=== PATIENT | female | born 2000 | race Caucasian/White ===

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

== ENCOUNTER → 2020-06-23 | Outpatient (CLI) | payer OTHER, SELFPAY ==
[2020-06-23 14:22] VITALS: BMI 25.7
[2020-06-23 19:32] LABS: Chlamydia Trachomatis by PCR Negative (Negative); Neisserai gonorrhoeae by PCR Negative (Negative); Probe Check PASS; Sample Adequacy Control PASS; Specimen Processing Control PASS
== END | disposition home or self-care (01) ==
LOC: LABSPEC 16:28
PROVIDERS: PCP Pediatrics; Visit Provider Nurse Practitioner Women's Health
DX: Z11.3 Encounter for screening for infections with a predominantly sexual mode of transmission (principal)
CPT/HCPCS: 87491; 87591

== ENCOUNTER 2020-08-13 18:26 | Emergency (ER) | payer OTHER, SELFPAY ==
[2020-06-23 14:22] VITALS: BMI 25.7
[2020-08-13 18:27] VITALS: BP 122/70; PULSE 63; RESP 20; TEMP 36.5; O2SAT 96; BMI 24.9
[2020-08-13 20:33] VITALS: BP 114/70; PULSE 52; RESP 16; O2SAT 100
[2020-08-13 20:34] VITALS: O2SAT 97
--- NOTE | 2020-08-13 21:10 | EDS_ITS ---
HPI History of Present Illness Chief Complaint: Chest Pain Informant: patient Narrative Narrative: Patient is a 20-year-old previously healthy female who presents to the emergency department for chest pain. This started earlier today. She started develop a cough today. She was diagnosed with Covid this past Sunday. She denies any production to her cough. Taking a deep breath does seem to aggravate her symptoms. She has not tried taking anything for it. She is currently denying any significant pain or shortness of breath. She does occasionally feel short of breath when the pain comes on. She denies any leg swelling or calf pain. She has had some intermittent fevers and chills. She denies any abdominal pain or nausea/vomiting. She has had some loose stools. She is on control. She denies any smoking history. [facility] Medical History (Updated 08/13/20 @ 23:[address] Clemente Howard DO) Biliary dyskinesia Physical exam, pre-employment Home Medications norgestimate 0.25 mg-ethinyl estradiol 35 mcg tablet 1 tab PO QDAY #84 tab 06/23/20 [Rx Last Taken Unknown] Allergy/AdvReac Type Severity Reaction Status Date / Time No Known Allergies Allergy Verified 06/23/20 14:18 Family History Grandfather Heart disease Grandmother Heart disease Surgical History (Updated 08/13/20 @ 20:33 by Kade Alvarado) History of cholecystectomy Status post laparoscopic cholecystectomy (~07/07/19) Social History current occupational status: student current occupation: [employer] Smoking Status: Never smoker alcohol intake: never substance use type: does not use caffeine: Yes frequency: 5-6 times per week seatbelt use: always do you feel safe at home: Yes ROS ROS ED Constitutional Constitutional ED: Denies chills or fever(s) Eyes Eyes: Denies change in vision ENT ENT ED: Denies epistaxis or rhinorrhea Cardiovascular Cardiovascular: Reports chest pain; Denies palpitations Respiratory/Chest Respiratory/Chest: Reports cough and dyspnea; Denies sputum Gastrointestinal Gastrointestinal: Denies abdominal pain, nausea or vomiting Musculoskeletal Musculoskeletal: Denies back pain or neck pain Integumentary Denies rash Neurologic Neurologic: Denies dizziness, headache(s) or weakness EXAM Physical Exam Const Vital Signs: 08/13/20 18:27 08/13/20 20:33 08/13/20 20:34 Temperature 97.7 F L Temperature Source Temporal Pulse Rate 63 52 L Respiratory Rate 20 H 16 Respiratory Depth Normal Respiratory Pattern Normal Blood Pressure 122/70 H 114/70 Blood Pressure Mean 87 84 Pulse Ox 96 100 Oxygen Delivery Method Room Air Room Air Room Air 08/13/20 22:00 Temperature Temperature Source Pulse Rate 53 L Respiratory Rate 17 Respiratory Depth Respiratory Pattern Blood Pressure 112/75 Blood Pressure Mean 87 Pulse Ox 99 Oxygen Delivery Method Room Air Positive well nourished and well developed General Appearance ED: well developed and NAD HEENT Reports normocephalic, head/scalp atraumatic and moist mucous membranes Eyes PERRL and EOMs intact bilaterally Neck supple Resp normal respiratory effort and clear to auscultation bilaterally Auscultation: Negative for rales, rhonchi or wheezes Cardio regular rate, regular rhythm and no murmurs GI normal to inspection, nondistended, normoactive bowel sounds and non-tender Palpation: soft; Negative for guarding or rebound tenderness present Extremity normal to inspection General Extremety ED: Negative for edema or tenderness General Extremity: Negative for edema Neuro CN's II-XII intact bilaterally and no sensory deficits noted Sensorium / Orientation: alert Motor Exam: strength 5/5 throughout Psych mental status grossly normal Skin no rashes or lesions noted MDM MDM MDM Narrative Medical decision making narrative: Patient presents to the ED for chest pain with a Covid diagnosis. On arrival to the ED she is satting 96% on room air. She is not tachypneic. She is not tachycardic. She is a benign physical exam. I discussed with the patient and her mother about the increased risk for PE with Covid although she is not meeting other criteria for the diagnosis. They did want to be evaluated so we will do a D-dimer test on her. They understand the might require a CT scan of the chest if this comes back positive. Patient's lab work showed mild leukopenia consistent with Covid. Her D-dimer is well within normal limits. Troponin is not elevated. The rest lab work did not reveal a significant acute abnormality. Chest x-ray was also clear. At this time will discharge home in stable condition. Recommend symptomatic treatment at home. Return precautions are reviewed. They are to otherwise follow-up with her PCP. All questions were answered. Lab Data Labs: Laboratory Results - last 24 hr 08/13/20 08/13/20 08/13/20 21:38 21:38 21:38 WBC 4.1 L RBC 4.51 Hgb 13.7 Hct 40.1 MCV 88.9 MCH 30.4 MCHC 34.2 RDW Std Deviation 37.6 RDW Coeff of Ricky 11.6 Plt Count 152 MPV 9.5 Immature Gran % (Auto) 0.000 Neut % (Auto) 36.8 L Lymph % (Auto) 54.6 H [place] % (Auto) 8.1 Eos % (Auto) 0.5 Baso % (Auto) 0.0 Absolute Neuts (auto) 1.5 L Absolute Lymphs (auto) 2.21 Nucleated RBC % 0 D-Dimer Quant (PE/DVT) < 0.27 L Sodium 140 Potassium 3.5 Chloride 106 Carbon Dioxide 29.0 Anion Gap 5 BUN 15 Creatinine 0.88 Estim Creat Clear Calc 88.06 Est GFR (MDRD) Af Amer 105 Est GFR (MDRD) Non-Af 87 BUN/Creatinine Ratio 17.1 Glucose 87 Calcium 8.8 Troponin I High Sens 30.2 Radiography Chest X-Ray - ED: 1 View (Patient single view portable x-ray is interpreted by myself. Clear lung garcia bilaterally. No effusions. Normal cardiac silhouette. Normal mediastinum.) Diagnostic Testing: Radiology Impression Chest X-Ray 08/13/20 22:28 IMPRESSION: Normal x-ray examination of the chest. Electronically Signed: Viral Henry DO at 22:47 EDT Tel , Service support , EKG Initial EKG: Attestation: I personally reviewed and interpreted this EKG as follows: (Rate of 54 bpm in sinus bradycardia. Normal intervals. Normal axis. No significant ST elevations or depressions. No T wave abnormalities.) Discharge Plan Triage Chief Complaint: Chest Pain ED Provider: Clemente Howard Dx/Rx/DC Orders Clinical Impression: COVID, Chest pain Instructions: ED Chest Pain, Noncardiac, Caring for Someone Who Has COVID-19 Prescriptions: No Action norgestimate-ethinyl estradiol [Sprintec (28)] 0.25-35 mg-mcg tablet 1 tab PO QDAY Qty: 84 RF: 4 Primary Care Provider: Caden Perez Referrals: Caden Perez MD [Primary Care Provider] - 1 Week Disposition Disposition: Home, Self Care Discharge Date/Time: 08/13/20 23:25
--- NOTE | 2020-08-13 21:22 | EKG12_ITS ---
Test Reason : DYSRHYTHMIA Blood Pressure : / mmHG Vent. Rate : 054 BPM Atrial Rate : 054 BPM P-R Int : 118 ms QRS Dur : 086 ms QT Int : 432 ms P-R-T Axes : 004 078 048 degrees QTc Int : 409 ms Sinus bradycardia Otherwise normal ECG Confirmed by MANINDER PARTIDA, LUKAS ([id number]), primer expeditor and drier KAREN LEROY ([id number]) on 08/16/2020 1:17:26 PM Referred By: RAE Confirmed By:LUKAS DICKENS MD
[2020-08-13] MEDS: Aspirin 81 MG TAB.CHEW 324 MG PO (21:33)
[2020-08-13 21:52] LABS: Absolute Lymphocyte Count 2.21 X10^3/uL (0.83-4.51); Absolute Neutrophil Count 1.5 X10^3/uL (2.0-7.7); Eosinophil# 0.02 X10^3/uL; Eosinophils% 0.5 % (0-5); Hematocrit 40.1 % (37-47); Hemoglobin 13.7 g/dL (12.0-15.0); Lymphocyte # 2.21 X10^3/ul (0.83-4.51); Lymphocyte % 54.6 % (19-41); Mean Corp Hgb Conc 34.2 g/dL (32-36); Mean Corpuscular Hgb 30.4 pg (27.0-32.0); Mean Corpuscular Volume 88.9 fL (81-99); Mean Platelet Vol. 9.5 fl (6.2-12.0); Monocyte# 0.33 X10^3/uL; Monocyte% 8.1 % (0-10); NRBC Flagged by Analyzer 0 % (0-5); Neutrophil # 1.49 X10^3/uL (2.7-7.7); Neutrophil % 36.8 % (47-70); Platelet Count 152 K/mm3 (150-450); RBC Distribution Width CV 11.6 % (11.6-14.6); RBC Distribution Width SD 37.6 fl (35.1-43.9); Red Blood Count 4.51 M/mm3 (4.2-5.4); White Blood Count 4.1 K/mm3 (4.4-11.0)
[2020-08-13 22:00] VITALS: BP 112/75; PULSE 53; RESP 17; O2SAT 99
[2020-08-13 22:10] LABS: Anion Gap 5 (5-15); BUN 15 mg/dL (7-18); BUN/Creat Ratio 17.1 RATIO (10-20); Calcium,Total 8.8 mg/dL (8.5-10.1); Chloride 106 mmol/L (98-107); Creatinine, Serum 0.88 mg/dL (0.55-1.02); EST Glomerular Filtration Rate 87 mL/min (>60); Est Glom Filt Rate - Afr Amer 105 mL/min (>60); Estimated Creatinine Clearance 88.06 ml/min; Glucose 87 mg/dL (74-106); Potassium 3.5 mmol/L (3.5-5.1); Sodium Level 140 mmol/L (136-145); Troponin-I HS 30.2 pg/mL (3.0-53.7)
[2020-08-13 22:13] LABS: D-Dimer Quantitative (DVT/PE) < 0.27 FEU/ug/m (0.27-0.49)
--- NOTE | 2020-08-13 22:28 | RAD_ITS ---
STUDY: X-RAY CHEST REASON FOR EXAM: Female, 20 years old. COVID, CP TECHNIQUE: Single AP portable view of the chest. COMPARISON: 06/10/2014 FINDINGS: The lungs are clear and expanded. There is no demonstrated pleural abnormality. Normal size heart. Normal mediastinum and johan. Normal visualized pulmonary arteries. Normal visualized aortic arch and descending thoracic aorta. Normal visualized thoracic spine. Normal visualized ribs, clavicles, and shoulders. There is no demonstrated abnormality of the visualized soft tissue structures of the upper abdomen. RAD/Chest 1 View (Portable) IMPRESSION: Normal x-ray examination of the chest. Electronically Signed: Viral Henry DO at 22:47 EDT Tel , Service support ,
== END 2020-08-13 23:25 | disposition home or self-care (01) ==
PROVIDERS: Emergency Provider Emergency Medicine; PCP Pediatrics
DX: U07.1 COVID-19 (principal); R07.9 Chest pain, unspecified; Z79.3 Long term (current) use of hormonal contraceptives
CPT/HCPCS: 71045; 80048; 84484; 85025; 85379; 93005; 99285; A4216

== ENCOUNTER → 2020-12-23 | Outpatient (CLI) | payer OTHER, SELFPAY | END | disposition home or self-care (01) | LOC: LABSPEC 10:07 | PROVIDERS: PCP Pediatrics; Referring Provider Physician Assistant; Visit Provider Physician Assistant | DX: J02.9 Acute pharyngitis, unspecified (principal) | CPT/HCPCS: 87081 ==

== ENCOUNTER → 2021-06-27 | Outpatient (CLI) | payer OTHER, SELFPAY ==
[2021-06-27 12:15] LABS: HIV - WCH Non-Reactive (Nonreactive); Syphilis Antibodies Non-reactive
[2021-06-28 09:42] LABS: HSV 1 IgG < 0.91 index (0.00-0.90); HSV 2 IgG < 0.91 index (0.00-0.90)
[2021-06-28 21:08] LABS: Chlamydia By Nucleic Acid AMP Negative (Negative)
[2021-06-29 10:30] LABS: Gonococcus By Nucleic Acid AMP Negative (Negative)
[2021-06-30 18:21] LABS: HPV Reflexed? NOT INDICATED
== END | disposition home or self-care (01) ==
LOC: LAB 11:01
PROVIDERS: PCP Pediatrics; Referring Provider Nurse Practitioner Women's Health; Visit Provider Nurse Practitioner Women's Health
DX: Z20.2 Contact with and (suspected) exposure to infections with a predominantly sexual mode of transmission (principal); Z12.4 Encounter for screening for malignant neoplasm of cervix
CPT/HCPCS: 36415; 86695; 86696; 86703; 86780; 87491; 87591; 88175; G0145

== ENCOUNTER → 2022-03-30 | Outpatient (CLI) | payer OTHER, SELFPAY ==
[2022-03-30 11:40] LABS: Thyroid Stim Hormone (TSH) 0.69 uIU/mL (0.358-3.74)
== END | disposition home or self-care (01) ==
LOC: LAB 10:40
PROVIDERS: PCP Internal Medicine; Referring Provider Nurse Practitioner Women's Health; Visit Provider Nurse Practitioner Women's Health
DX: Z13.29 Encounter for screening for other suspected endocrine disorder (principal)
CPT/HCPCS: 36415; 84443